=== PATIENT | male | born 1935 | race Caucasian/White ===

== ENCOUNTER → 2016-10-04 | Outpatient (CLI) | payer MEDICARE, OTHER ==
[2015-09-08 13:35] VITALS: BP 115/34
[~2016-10-04] MED LIST: ASPI-630 PO; ASPI325T8 PO; ATOR20TA PO; ATOR20TA58 PO; GLIP2.5T4 PO; LEVO25TA4 PO; LISI10TA2 PO; METF10002 PO; MULT-658 PO
--- NOTE | 2016-10-04 10:21 | RAD ---
CT head without contrast History: Syncopal episode, hit head, dizziness, headache. Comparison: 09/08/2015. Procedure: Axial images are obtained of the head from the skull base through the vertex without IV contrast. Findings: Moderate bilateral periventricular white matter hypodensities likely chronic small vessel ischemic disease. Age related cerebral atrophic changes.. No mass-effect, intracranial mass, midline shift, hemorrhage or obvious acute infarction is identified. Basilar cisterns are patent. Bone windows demonstrate no significant calvarial abnormality. The visualized paranasal sinuses appear clear. Impression: 1. No acute intracranial process. PQRS Compliance Statement: One or more of the following individualized dose reduction techniques were utilized for this examination: 1. Automated exposure control 2. Adjustment of the mA and/or kV according to patient size 3. Use of iterative reconstruction technique faint
== END | disposition home or self-care (01) ==
LOC: CT 09:30
PROVIDERS: ATTEND Family Medicine
DX: R51 Headache (principal); R55 Syncope and collapse; R42 Dizziness and giddiness
CPT/HCPCS: 70450

== ENCOUNTER → 2017-09-28 | Outpatient (CLI) | payer MEDICARE, OTHER ==
[2015-09-08 13:35] VITALS: BP 115/34
[~2017-09-28] MED LIST changes: -METF10002 PO; +METF10003 PO
--- NOTE | 2017-09-28 13:47 | RAD ---
Bilateral lower extremity arterial duplex ultrasound 09/28/2017 Ankle-brachial indices INDICATION: Diabetic. Peripheral vascular disease with right lower extremity edema Discussion: Ultrasound evaluation of the bilateral lower extremities was performed including color Doppler imaging with spectral analysis. Mild diffuse atherosclerotic vascular disease is noted throughout the bilateral lower extremity arteries. No focal high-grade visual narrowing is seen on color Doppler imaging. Wave form morphology is grossly normal throughout the bilateral lower extremities. No focal area of increased velocity suggestive of a hemodynamically significant stenosis is identified. Blood pressure measurements were obtained and the arms and ankles bilaterally. Right brachial pressure: 140 mmHg Left brachial pressure: 150 mmHg Right ankle pressure: 168 mmHg Left ankle pressure: 178 mmHg IMPRESSION: 1.Unremarkable sonographic appearance of the major arteries of the bilateral lower extremities. 2. Ankle-brachial indices are within normal limits. Electronically signed by: Moses Rees MD (09/28/2017 1:43 PM) [id number]
== END | disposition home or self-care (01) ==
LOC: US 09:22
PROVIDERS: ATTEND Family Medicine
DX: I70.293 Other atherosclerosis of native arteries of extremities, bilateral legs (principal); E11.9 Type 2 diabetes mellitus without complications; E78.5 Hyperlipidemia, unspecified; E03.9 Hypothyroidism, unspecified
CPT/HCPCS: 93922; 93925

== ENCOUNTER → 2019-03-25 | Outpatient (CLI) | payer MEDICARE, OTHER ==
[2015-09-08 13:35] VITALS: BP 115/34
[~2019-03-25] MED LIST changes: -METF10003 PO; +METF10007 PO
--- NOTE | 2019-03-25 11:12 | RAD ---
Examination: VENOUS LOWER EXTREMITY RIGHT History: Right leg pain and swelling Comparison/Correlation: None FINDINGS: Right lower extremity duplex venous ultrasound exam was performed. Grayscale, color Doppler, and spectral Doppler imaging was performed. Compression and augmentation was performed. The right common femoral vein, superficial femoral vein, popliteal vein, and greater saphenous vein are normal with no evidence of deep venous thrombus. Normal compressibility and augmentation is evident. Visualized right calf veins are unremarkable. IMPRESSION: Normal right lower extremity duplex ultrasound exam. No evidence of deep venous thrombus involving the right lower extremity. Electronically signed by: Bradley Morillo MD (03/25/2019 11:10 AM) [facility]
== END | disposition home or self-care (01) ==
LOC: US 10:02
PROVIDERS: ATTEND Family Medicine
DX: M79.604 Pain in right leg (principal); M79.89 Other specified soft tissue disorders
CPT/HCPCS: 93971

== ENCOUNTER 2021-02-16 11:13 | Emergency (ER) | payer MEDICARE, OTHER ==
[~2021-02-16] VITALS: Ht 170.2 cm; Wt 88.9 kg
[~2021-02-16 11:13] MED LIST changes: +LISI10TA16 PO; -LISI10TA2 PO
--- NOTE | 2021-02-16 11:42 | PHYS DOC ---
Past History Past Medical History: Other Past Surgical History: Cancer Surgery, Other Alcohol Use: Rarely Drug Use: None General Adult EDM: Chief Complaint: MECHANICAL FALL HPI: HPI: Patient is a 85-year-old male brought in by after a fall yesterday. He was getting out of the car and tripped falling backwards and struck his head on the driveway. She denies any loss of consciousness but says he was "stunned" briefly. EMS was called and helped him to the house. Patient declined EMS transport to the hospital at that time. Patient was acting normally per last night. She states he normally has a difficult time getting around and has to use a cane. She states that this morning he woke up and has vomited 3-4 times has had increased difficulty walking. Takes a full-strength aspirin daily. She denies any slurred or appropriate speech, denies any confusion. Review of Systems: Review of Systems: All other systems within normal limits except for as noted in the HPI Current Medications: Current Meds: Current Medications Medications (Trade) Dose Ordered Sig/Jenny Start Time Stop Time Status Last Admin Dose Admin Diphtheria/ Pertussis/Tetanus Vacc (ADACEL TDap SYRINGE) 0.5 ml ONCE ONCE 02/16/21 11:30 02/16/21 11:31 UNV Allergies: Allergies: Allergies Coded Allergies Type Severity Reaction Last Updated Verified No Known Drug Allergies 11/21/14 No Physical Exam: PE: Constitutional: Well developed, well nourished, no acute distress, non-toxic appearance. [] HENT: Normocephalic, atraumatic, bilateral external ears normal, nose normal. [] Eyes: PERRLA, conjunctiva normal, no discharge. [] Neck: No rigidity, supple, no stridor. No C-spine tenderness, no step-off or deformity [] Cardiovascular: Regular rate and rhythm, brisk cap refill [] Lungs & Thorax: Non labored symmetric respirations, no tachypnea or respiratory distress [] Abdomen: Soft, nondistended. Skin: Warm, dry, no erythema, no rash. Superficial abrasions to occiput with mild swelling [] Back: Unremarkable, no tenderness step-off or deformity Extremities: No deformities, range of motion grossly intact, no lower extremity edema [] Neurologic: Alert and oriented X 3, no focal deficits noted. [] Psychologic: Affect normal, judgement normal, mood normal. [] EKG: EKG: [] Radiology/Procedures: Radiology/Procedures: [address] [address] IMAGING REPORT Signed PATIENT: CHETNA RECIOOUNT: [id number] : 1935 LOCATION: ER AGE: 85 SEX: M EXAM STATUS: REG ER ORD. PHYSICIAN: YA PAYTON MD REASON: fall, vomiting PROCEDURE: CT HEAD AND CERVICAL SPINE WO Exam Date: 02/16/2021 11:[address] HEAD AND C-SPINE WO Indication: Reason: fall, vomiting / Spl. Instructions: / History: . One or more of the following dose reduction techniques were utilized: *Automated exposure control (AEC) *Adjustment of mA and/or kV according to patient size *Use of iterative reconstruction technique *CT scan done according to ALARA, or ALARA/IMAGE GENTLY EXAMINATION: CT OF THE HEAD WITHOUT CONTRAST INDICATION: Trauma, head injury, headache; TECHNIQUE: Noncontrast helical axial CT images of the head were obtained. FINDINGS: There is posterior biparietal scalp soft tissue swelling and hematoma without depressed skull fracture. Small acute intraventricular hemorrhage is seen layering in the right occipital horn. Small acute subarachnoid blood is seen bilaterally along the anterior falx. Small acute subdural hemorrhage is seen along the anterior falx on the right measuring up to 3 mm in thickness. No significant mass effect or midline shift. No acute territorial infarct. The ventricles and sulci are prominent consistent with cerebral volume loss. Patchy ill-defined low attenuation areas in the subcortical and periventricular white matter bilaterally are consistent with microvascular disease. The visualized paranasal sinuses, mastoid air cells, and orbits are normal in appearance. IMPRESSION: Acute subdural, subarachnoid, and intraventricular hemorrhages as described. No significant mass effect or midline shift. Biparietal scalp soft tissue swelling and hematoma without depressed skull fra cture. Volume loss and microvascular disease. Findings discussed with Dr. Ya Payton at 02/16/2021 12:18 PM. FOR INTERNAL CODING PURPOSES Critical result: RESULT CODE: (C) EXAMINATION: CT OF THE CERVICAL SPINE WITHOUT CONTRAST Clinical Indication: Cervical spine pain after trauma Technique: Thin cut helical axial CT images through the cervical spine were obtained without contrast on a multi-detector CT scanner. Source data was then reconstructed into sagittal and coronal planes. Findings: Alignment is maintained without spondylolisthesis. Vertebral body heights are maintained without acute fracture. Moderate multilevel degenerative changes are noted. No significant prevertebral soft tissue swelling is demonstrated. No severe osseous central canal stenosis is seen. Impression: No evidence of acute cervical spine fracture or subluxation. Findings discussed with Dr. Ya Pyaton at 02/16/2021 12:18 PM. FOR INTERNAL CODING PURPOSES Critical result: RESULT CODE: (C) Electronically signed by: Lucy Tyler MD (02/16/2021 12:24 PM) [id number] DICTATED AND SIGNED BY: LUCY TYLER MD DATE: 02/16/211207 CC: KISHA DUGGAN MD; YA PAYTON MD ~MTH0 0 [] Heart Score: C/O Chest Pain: No Risk Factors: Risk Factors: DM, Current or recent (<one month) smoker, HTN, HLP, family history of CAD, obesity. Risk Scores: Score 0 - 3: 2.5% MACE over next 6 weeks - Discharge Home Score 4 - 6: 20.3% MACE over next 6 weeks - Admit for Clinical Observation Score 7 - 10: 72.7% MACE over next 6 weeks - Early Invasive Strategies Course & Med Decision Making: Course & Med Decision Making Pertinent Labs and Imaging studies reviewed. (See chart for details) Patient with small intracranial hemorrhages. Otherwise neurally stable. Will transfer to [place] for ICU and neurosurgery consults. Discussed imaging and patient presentation with Dr. Mcdowell assistant program director Hyun will see the patient later today or in the morning. Accepted by the hospitalist Dr. Masterson [] Bautista Disclaimer: Bautista Disclaimer: This electronic medical record was generated, in whole or in part, using a voice recognition dictation system. Departure Departure: Impression: Primary Impression: Fall Additional Impression: Intracranial hemorrhage Disposition: 02 SHORT TERM HOSPITAL Condition: GUARDED Referrals: KISHA DUGGAN MD (PCP) YA PAYTON MD Feb 16, 2021 11:42
[2021-02-16] MEDS ORDERED: ONDANSETRON ODT 4 MG TAB.RAPDIS ONE (11:54)
--- NOTE | 2021-02-16 12:27 | RAD ---
Exam Date: 02/16/2021 11:[address] HEAD AND C-SPINE WO Indication: Reason: fall, vomiting / Spl. Instructions: / History: . One or more of the following dose reduction techniques were utilized: *Automated exposure control (AEC) *Adjustment of mA and/or kV according to patient size *Use of iterative reconstruction technique *CT scan done according to ALARA, or ALARA/IMAGE GENTLY EXAMINATION: CT OF THE HEAD WITHOUT CONTRAST INDICATION: Trauma, head injury, headache; TECHNIQUE: Noncontrast helical axial CT images of the head were obtained. FINDINGS: There is posterior biparietal scalp soft tissue swelling and hematoma without depressed skull fractur e. Small acute intraventricular hemorrhage is seen layering in the right occipital horn. Small acute subarachnoid blood is seen bilaterally along the anterior falx. Small acute subdural hem orrhage is seen along the anterior falx on the right measuring up to 3 mm in thickness. No significant mass effect or midline shift. No acute territorial infarct. The ventricles and sulci are prominent consistent with cerebral volume loss. Patchy ill-defined low attenuation areas in the subcortical and periventricular white matter bilaterally are consistent with microvascular disease. The visualized paranasal sinuses, mastoid air cells, and orbits are normal in appearance. IMPRESSION: Acute subdural, subarachnoid, and intraventricular hemorrhages as described. No significant mass eff ect or midline shift. Biparietal scalp soft tissue swelling and hematoma without depressed skull fracture. Volume loss and microvascular disease. Findings discussed with Dr. Ya Guerrero at 02/16/2021 12:18 PM. FOR INTERNAL CODING PURPOSES Critical result: RESULT CODE: (C) EXAMINATION: CT OF THE CERVICAL SPINE WITHOUT CONTRAST Clinical Indication: Cervical spine pain after trauma Technique: Thin cut helical axial CT images through the cervical spine were obtained without contrast on a multi-detector CT scanner. Source data was then reconstructed into sagittal and coronal planes. Findings: Alignment is maintained without spondylolisthesis. Vertebral body heights are maintained without acute fracture. Moderate multilevel degenerative change s are noted. No significant prevertebral soft tissue swelling is demonstrated. No severe osseous cent ral canal stenosis is seen. Impression: No evidence of acute cervical spine fracture or subluxation. Findings discussed with Dr. Ya Guerrero at 02/16/2021 12:18 PM. FOR INTERNAL CODING PURPOSES Critical result: RESULT CODE: (C) Electronically signed by: Maurisio Tyler MD (02/16/2021 12:24 PM) [id number]
[2021-02-16 13:02] LABS: BASO % 0 % (0-3); EOS % 0 % (0-3); HEMATOCRIT 37.8 % (39.0-53.0); HEMOGLOBIN 12.9 g/dL (13.0-17.5); LYMPH # 0.8 x10^3/uL (1.0-4.8); LYMPH % 10 % (24-48); MEAN CORPUSCULAR HEMOGLOBIN 32 pg (25-35); MEAN CORPUSCULAR HGB CONC 34 g/dL (31-37); MEAN CORPUSCULAR VOLUME 93 fL (79-100); MONO # 0.4 x10^3/uL (0.0-1.1); MONO % 5 % (0-9); NEUT # 6.8 x10^3uL (1.8-7.7); NEUT % 84 % (31-73); PLATELET COUNT 138 x10^3/uL (140-400); RED BLOOD COUNT 4.06 x10^6/uL (4.30-5.70); RED CELL DISTRIBUTION WIDTH 13.9 % (11.5-14.5); WHITE BLOOD COUNT 8.1 x10^3/uL (4.0-11.0)
[2021-02-16] MEDS: DIPH,PERTUSS(ACELL),TET VAC/PF 0.5 ML SYRINGE. VAX IM ONE (13:02)
[2021-02-16 13:08] LABS: CREATININE 1.1 mg/dL (0.7-1.3); GFR 63.6; POTASSIUM 4.8 mmol/L (3.5-5.1)
[2021-02-16 13:13] LABS: ALBUMIN 3.8 g/dL (3.4-5.0); ALBUMIN/GLOBULIN RATIO 1.2 (1.0-1.7); TOTAL BILIRUBIN 0.8 mg/dL (0.2-1.0); TOTAL PROTEIN 7.1 g/dL (6.4-8.2)
[2021-02-16 16:56] VITALS: BP 153/98
== END 2021-02-16 17:30 | disposition short-term general hospital (02) ==
LOC: ER 11:13
DX: S06.300A Unspecified focal traumatic brain injury without loss of consciousness, initial encounter (principal); Z20.822 Contact with and (suspected) exposure to COVID-19; W01.0XXA Fall on same level from slipping, tripping and stumbling without subsequent striking against object, initial encounter; Y93.89 Activity, other specified; Y92.89 Other specified places as the place of occurrence of the external cause; Y99.8 Other external cause status
CPT/HCPCS: 36415; 70450; 72125; 80053; 85025; 85610; 87426; 90471; 90715; 99285; C9803; U0003